=== PATIENT | male | born 2000 | race Caucasian/White ===

== ENCOUNTER 2024-09-17 20:52 | Emergency (ER) | payer BC ==
[~2024-09-17] VITALS: Ht 182.9 cm; Wt 65.8 kg
[2024-09-17 21:36] VITALS: BP 130/70; TEMP 98.3; O2SAT 99
[2024-09-17] MEDS ORDERED: AMOX-430 PO (21:43)
== END 2024-09-17 21:46 | disposition home or self-care (01) ==
LOC: ER 20:56
DX: S71.151A Open bite, right thigh, initial encounter (principal); Z60.2 Problems related to living alone; W54.0XXA Bitten by dog, initial encounter; Y93.89 Activity, other specified; Y92.89 Other specified places as the place of occurrence of the external cause; Y99.8 Other external cause status